=== PATIENT | female | born 1950 | race Caucasian/White ===

== ENCOUNTER 2018-09-14 15:44 | Inpatient (IN) | payer OTHER ==
[~2018-09-14] VITALS: Ht 152.4 cm; Wt 97.5 kg
[~2018-09-14 15:44] MED LIST: ASPIR 8181 MG PO; ASPIR-TRIN325 MG PO; ATIVAN1 MG PO; BENADRYL25 MG PO; CARVEDILOL12.5 MG PO; CELEXA 20 MG TA20 MG; FISH OIL 1,001000 M2 PO; HYDROCODON-ACE1 EAC7 PO; HYDROCODONE-AP1 EAC6 PO; IMDUR 60 MG TAB60 M1 PO; ISOSORBIDE DN 110 MG; LASIX 40 MG TAB40 M2 PO; LEVAQUIN 500 M500 M2 PO; LIPITOR40 MG PO; METAXALONE800 MG; OXYBUTYNIN 5 MG5 M2 PO; OXYCODONE HCL 55 MG PO; PLAVIX 75 MG TA75 M1; PLAVIX 75 MG TA75 M1 PO; PRAMIPEXOLE DIHY1 MG PO; PREDNISONE 10 M10 M1 PO; PRENATAL PO; PROTONIX40 M1 PO; ROXICODONE5 M2 PO; TOBRAMYCIN-DEXAM5 ML OP; VITAMIN B-12500 MCG PO; VITAMIN D 5050000 I1 PO; XARELTO10 MG PO
[2018-09-14 15:46] VITALS: BP 135/62
[2018-09-14 16:04] LABS: ABSOLUTE EOSINOPHILS 0.1 thou/uL (0.0-0.7); ABSOLUTE LYMPHOCYTES 1.4 thou/uL (0.8-5.3); ABSOLUTE MONOCYTES 0.5 thou/uL (0.0-1.2); ABSOLUTE NEUTROPHILS 2.4 thou/uL (1.6-8.1); BASOPHILS 0.6 %; HEMATOCRIT 33.4 % (37.0-47.0); HEMOGLOBIN 10.9 gm/dL (12.0-15.0); LYMPHOCYTES 31.5 %; MCH 27.6 pg (26.0-34.0); MCHC 32.7 g/dL (28.0-37.0); MCV 84.5 fL (80.0-100.0); MONOCYTES 11.1 %; MPV 9.9 fl. (7.2-11.1); NUCLEATED RBCS 0 /100WBC; PLATELET COUNT* 159 thou/uL (150-400); POLYS 54.8 %; RBC 3.96 mil/uL (4.20-5.00); RDW-CV 14.3 % (10.5-14.5); WBC 4.5 thou/uL (4.0-11.0)
[2018-09-14 16:12] LABS: APTT 26.7 Seconds (25.0-31.3); PROTIME 10.4 Seconds (9.20-11.50)
[2018-09-14 16:22] LABS: ALBUMIN 3.4 g/dL (3.4-5.0); ALKALINE PHOSPHATASE 204 U/L (46-116); ANION GAP 6 mmol/L (7-16); BUN 13 mg/dL (7-18); CALCIUM 8.2 mg/dL (8.5-10.1); CHLORIDE 110 mmol/L (98-107); CO2 27 mmol/L (21-32); CREATININE 0.9 mg/dL (0.6-1.3); GLUCOSE 137 mg/dL (70-99); LIPASE 168 U/L (73-393); SGOT 16 U/L (15-37); SGPT 26 U/L (30-65); SODIUM 143 mmol/L (136-145); TOTAL BILIRUBIN 0.7 mg/dL (<0.1-1.0); TOTAL PROTEIN 6.8 g/dL (6.4-8.2); TROPONIN-I LEVEL <0.06 ng/mL (<0.06)
[2018-09-14 17:53] LABS: AMP/METHAMP Negative (Negative); BARBITURATES Negative (Negative); BENZODIAZEPINES Negative (Negative); COCAINE Negative (Negative); METHADONE Negative (Negative); OPIATES Negative (Negative); PCP Negative (Negative); THC Negative (Negative)
[2018-09-14 19:01] VITALS: BP 132/47
[2018-09-14 20:00] VITALS: BP 133/61
[2018-09-15 00:25] VITALS: BP 109/45
[2018-09-15 04:00] VITALS: BP 118/43
[2018-09-15 04:58] LABS: ABSOLUTE EOSINOPHILS 0.1 thou/uL (0.0-0.7); ABSOLUTE LYMPHOCYTES 1.8 thou/uL (0.8-5.3); ABSOLUTE MONOCYTES 0.5 thou/uL (0.0-1.2); ABSOLUTE NEUTROPHILS 1.9 thou/uL (1.6-8.1); BASOPHILS 0.6 %; EOSINOPHILS 2.3 %; HEMATOCRIT 31.4 % (37.0-47.0); HEMOGLOBIN 10.3 gm/dL (12.0-15.0); LYMPHOCYTES 42.8 %; MCH 27.5 pg (26.0-34.0); MCHC 32.9 g/dL (28.0-37.0); MCV 83.5 fL (80.0-100.0); MONOCYTES 10.7 %; MPV 10.8 fl. (7.2-11.1); NUCLEATED RBCS 0 /100WBC; PLATELET COUNT* 141 thou/uL (150-400); POLYS 43.6 %; RBC 3.76 mil/uL (4.20-5.00); RDW-CV 14.4 % (10.5-14.5); WBC 4.2 thou/uL (4.0-11.0)
[2018-09-15 05:04] LABS: CALCIUM 8.3 mg/dL (8.5-10.1); CREATININE 0.8 mg/dL (0.6-1.3); POTASSIUM 4.2 mmol/L (3.5-5.1)
[2018-09-15] MEDS ORDERED: ELIQUIS5 MG PO (07:25)
[2018-09-15] MEDS ORDERED: ZANTAC 150MG T150 MG PO (07:41)
[2018-09-15] MEDS ORDERED: NORVASC2.5 MG PO (07:43)
[2018-09-15] MEDS ORDERED: TIKOSYN125 MCG PO (07:45)
[2018-09-15] MEDS ORDERED: TRAMADOL 50 MG50 MG PO (07:46)
[2018-09-15] MEDS ORDERED: RANEXA500 MG PO (07:48)
[2018-09-15] MEDS ORDERED: NITROGLYCERIN0.4 MG SUBLING (07:50)
[2018-09-15 08:00] VITALS: BP 143/48
--- NOTE | 2018-09-15 11:34 | EKG ---
[place] [address] ELECTROCARDIOGRAM REPORT Name: JOSIE LANDERSFLORENCE Lee Room: [place] [address] ADM IN .R.#: [id number] Admission: 09/14/18 Attend Phys: Eleazar Caceres MD Discharge: Date of : 52 Report #: [id number] THIS REPORT FOR: //name// [facility] Test Date: 2018-09-14 Test Time: 15:44:08 Pat Name: TOMY LANDERS Department: Room: [facility] Gender: F Flitch Hanger: : 1950 Requested By: Gilles Silva Order Number: [id number] MD: Jose Luis Wong Measurements Intervals [place] Rate: 59 P: 59 [place]: 181 QRS: 51 QRSD: 99 T: 20 QT: 449 QTc: 445 Interpretive Statements Sinus rhythm Inferior infarct, old Compared to ECG 01/23/2016 07:53:08 No significant changes Electronically Signed On 09-15-2018 11:34:17 CDT by Jose Luis Wong [email or web address] <ELECTRONICALLY SIGNED> By: Jose Luis Wong MD, [facility] 09/15/18 [id number] Jose Luis Wong MD, [facility] /EPI
[2018-09-15 12:30] VITALS: BP 122/53
[2018-09-15 13:46] VITALS: BP 143/48
== END 2018-09-15 16:36 | disposition home or self-care (01) | DRG 309 ==
LOC: M.ERS 15:44 → M.2W 16:57 → M.TBA-ER 16:57 → M.2W 19:15
PROVIDERS: Emergency Medicine Emergency Medical Services; ADMIT Internal Medicine
DX: I49.9 Cardiac arrhythmia, unspecified (principal); Z68.41 Body mass index [BMI] 40.0-44.9, adult; I25.118 Atherosclerotic heart disease of native coronary artery with other forms of angina pectoris; I48.0 Paroxysmal atrial fibrillation; E86.0 Dehydration; E11.9 Type 2 diabetes mellitus without complications; M19.90 Unspecified osteoarthritis, unspecified site; I25.10 Atherosclerotic heart disease of native coronary artery without angina pectoris; E66.01 Morbid (severe) obesity due to excess calories; E78.5 Hyperlipidemia, unspecified; I10 Essential (primary) hypertension; Z90.49 Acquired absence of other specified parts of digestive tract; Z90.710 Acquired absence of both cervix and uterus; Z98.84 Bariatric surgery status; Z95.1 Presence of aortocoronary bypass graft; Z95.5 Presence of coronary angioplasty implant and graft; Z98.891 History of uterine scar from previous surgery; Z79.84 Long term (current) use of oral hypoglycemic drugs; Z79.82 Long term (current) use of aspirin; Z88.2 Allergy status to sulfonamides; Z88.8 Allergy status to other drugs, medicaments and biological substances; Z88.1 Allergy status to other antibiotic agents; Z91.041 Radiographic dye allergy status; Z91.040 Latex allergy status; Z82.49 Family history of ischemic heart disease and other diseases of the circulatory system